=== PATIENT | male | born 1980 | race Caucasian/White ===

== ENCOUNTER 2021-07-19 12:04 | Day surgery (SDC) | payer OTHER ==
[~2021-07-19] VITALS: Ht 190.5 cm; Wt 82.7 kg
--- NOTE | 2021-07-19 12:36 | NUR ---
07/19/21 1236 Jorge Hein CALL LIGHT WITHIN REACH
== END 2021-07-19 14:17 | disposition home or self-care (01) ==
LOC: ORSCSDS 12:04
PROVIDERS: Student in an Organized Health Care Education/Training Program
PROC: 0DBN8ZX Excision of Sigmoid Colon, Via Natural or Artificial Opening Endoscopic, Diagnostic (ICD-10-PCS; principal; 2021-07-19 13:30)
PROC: 0DBP8ZX Excision of Rectum, Via Natural or Artificial Opening Endoscopic, Diagnostic (ICD-10-PCS; principal; 2021-07-19 13:30)
DX: K92.1 Melena (principal); K63.5 Polyp of colon; K64.9 Unspecified hemorrhoids; Z87.891 Personal history of nicotine dependence
CPT/HCPCS: 88305; J0330; J0461; J2250; J2405; J2704; J7120

== ENCOUNTER → 2025-03-05 | Outpatient (CLI) | payer OTHER ==
[2025-03-05 19:16] LABS: Chlamydia Trachomatis Urine NOT DETECTED (NOT DETECT); Neisseria Gonorrhoea Urine NOT DETECTED (NOT DETECT)
== END | disposition home or self-care (01) ==
LOC: LAB SHORT 15:32 → LAB 15:32
PROVIDERS: Family Medicine
DX: Z11.3 Encounter for screening for infections with a predominantly sexual mode of transmission (principal)
CPT/HCPCS: 87491; 87591